=== PATIENT | male | born 1990 ===

== ENCOUNTER 2019-09-19 01:27 | Emergency (ER) | payer SELFPAY ==
[2019-09-19] MEDS ORDERED: Sodium Chloride 0.9% 1,000 ML IV SCH ×2 (02:00→03:15)
--- NOTE | 2019-09-19 02:01 | EDM.PDOC ---
ED HPI GENERAL MEDICAL PROBLEM - General Chief Complaint: Drug or Alcohol Abuse Stated Complaint: MED CLEARANCE Time Seen by Provider: 09/19/19 01:54 Source of Information: Reports: Police History Limitations: Reports: Intoxication, Language Barrier - History of Present Illness INITIAL COMMENTS - FREE TEXT/NARRATIVE: This is a 29-year-old male. He was pulled over this evening by the [facility] [employer] and was found to be drunk. The patient apparently refused any sort of testing and did the sobriety test and failed. They brought him to the ER for medical clearance. However on the way down to the ER this gentleman went to sleep and they were unable to arouse him. When he arrived to the ER and was placed in the bed a firm sternal rub woke him up and he was able to understand some Jamaican and actually say a few Jamaican words. We started an IV on him to give him fluids and he was somewhat nervous about that but then once the IV was then he laid back down and fell asleep. Patient is maintaining his airway. Again no further history from this patient. ED ROS GENERAL - Review of Systems Review Of Systems: See Below Reason Not Obtained: Unable to obtain due to intoxication and language barrier - Physical Exam Exam: See Below Exam Limited By: Other (Language barrier) General Appearance: No Apparent Distress, Other Eye Exam: Bilateral Eye: Normal Inspection (Bloodshot eyes) Ears: Normal External Exam Nose: Normal Inspection Throat/Mouth: Normal Inspection, Normal Lips, No Airway Compromise Head Exam: Normocephalic Neck: Supple Respiratory/Chest: No Respiratory Distress, Lungs Clear, Normal Breath Sounds Cardiovascular: Regular Rate, Rhythm, No Murmur GI/Abdominal: Soft, Other (Does not appear to grimace or any signs of discomfort on palpation of his abdomen) Neuro Exam (Abbreviated): Other (Patient is lethargic and confused secondary to alcohol intake) Back Exam: Normal Inspection, Full Range of Motion Extremities: Normal Inspection, Normal Range of Motion Psychiatric: Other (Patient has a flat affect and is lethargic) Skin Exam: Warm, Dry Course - Vital Signs Last Recorded V/S: Last Vital Signs Temp 97.6 F 09/19/19 01:40 Pulse 83 09/19/19 01:40 Resp 14 09/19/19 01:40 BP 135/99 H 09/19/19 01:40 Pulse Ox 94 L 09/19/19 01:40 - Orders/Labs/Meds Orders: Active Orders 24 hr Category Date Time Status Sodium Chloride 0.9% [Normal Saline] 1,000 ml Med 09/19/19 02:00 Active IV ASDIRECTED Sodium Chloride 0.9% [Normal Saline] 1,000 ml Med 09/19/19 03:15 Active IV ASDIRECTED Medication Orders Sodium Chloride (Normal Saline) 1,000 mls @ 1,000 mls/hr IV ASDIRECTED ANNELISE Last Admin: 09/19/19 01:59 Dose: 1,000 mls/hr Documented by: ARMANI Sodium Chloride (Normal Saline) 1,000 mls @ 999 mls/hr IV ASDIRECTED ANNELISE Last Admin: 09/19/19 03:05 Dose: 999 mls/hr Documented by: ARMANI Labs: Laboratory Tests 09/19/19 09/19/19 Range/Units 01:45 01:45 WBC 7.50 (4.23-9.07) K/mm3 RBC 5.21 (4.63-6.08) M/mm3 Hgb 15.8 (13.7-17.5) gm/dl Hct 45.2 (40.1-51.0) % MCV 86.8 (79.0-92.2) fl MCH 30.3 (25.7-32.2) pg MCHC 35.0 (32.2-35.5) g/dl RDW Std Deviation 41.4 (35.1-43.9) fL Plt Count 242 (163-337) K/mm3 MPV 9.4 (9.4-12.3) fl Neut % (Auto) 39.0 (34.0-67.9) % Lymph % (Auto) 52.7 (21.8-53.1) % Bucks % (Auto) 7.1 (5.3-12.2) % Eos % (Auto) 0.5 L (0.8-7.0) Baso % (Auto) 0.4 (0.1-1.2) % Neut # (Auto) 2.93 (1.78-5.38) K/mm3 Lymph # (Auto) 3.95 H (1.32-3.57) K/mm3 Bucks # (Auto) 0.53 (0.30-0.82) K/mm3 Eos # (Auto) 0.04 (0.04-0.54) K/mm3 Baso # (Auto) 0.03 (0.01-0.08) K/mm3 Sodium 138 (136-145) mEq/L Potassium 3.9 (3.5-5.1) mEq/L Chloride 105 (98-107) mEq/L Carbon Dioxide 20 L (21-32) mEq/L Anion Gap 16.9 H (5-15) BUN 13 (7-18) mg/dL Creatinine 1.1 (0.7-1.3) mg/dL Est Cr Clr Drug Dosing TNP Estimated GFR (MDRD) > 60 (>60) mL/min BUN/Creatinine Ratio 11.8 L (14-18) Glucose 112 H (74-106) mg/dL Calcium 8.5 (8.5-10.1) mg/dL Total Bilirubin 0.5 (0.2-1.0) mg/dL AST 28 (15-37) U/L ALT 38 (16-63) U/L Alkaline Phosphatase 89 (46-116) U/L Total Protein 8.5 H (6.4-8.2) g/dl Albumin 4.3 (3.4-5.0) g/dl Globulin 4.2 gm/dL Albumin/Globulin Ratio 1.0 (1-2) Ethyl Alcohol 0.23 (0.00) gm% Meds: Medications Generic Name Dose Route Start Last Admin Trade Name Freq PRN Reason Stop Dose Admin Sodium Chloride 1,000 mls @ 1,000 mls/hr 09/19/19 02:00 09/19/19 01:59 Normal Saline IV 1,000 mls/hr ASDIRECTED ANNELISE Administration Sodium Chloride 1,000 mls @ 999 mls/hr 09/19/19 03:15 09/19/19 03:05 Normal Saline IV 999 mls/hr ASDIRECTED ANNELISE Administration - Re-Assessments/Exams Free Text/Narrative Re-Assessment/Exam: 09/19/19 03:26 Patient is beginning to stir but is not yet ready to leave. 09/19/19 04:05 Patient received 2 L of fluid he finally woke up he is able to ambulate to the bathroom and back to the room. I am going to discharge him at this time in the custody of the police. Departure - Departure Time of Disposition: 04:05 Disposition: Home, Self-Care 01 Condition: Fair Clinical Impression: Acute alcohol intoxication Qualifiers: Complication of substance-induced condition: uncomplicated Qualified Code(s): F10.920 - Alcohol use, unspecified with intoxication, uncomplicated - Discharge Information *PRESCRIPTION DRUG MONITORING PROGRAM REVIEWED*: Not Applicable *COPY OF PRESCRIPTION DRUG MONITORING REPORT IN PATIENT [facility]: Not Applicable Instructions: Alcohol Intoxication, [id number] Referrals: PCP,None [Primary Care Provider] - Additional Instructions: I have observed this patient in the ER for 2-1/2 hours, he is now able to ambulate without assistance to the bathroom, he is awake and talking, I do not anticipate a deterioration of his physical condition, he can return to the ER as needed Sepsis Event Note (ED) - Evaluation Sepsis Screening Result: No Definite Risk - Focused Exam Vital Signs: Vital Signs Temp Pulse Resp BP Pulse Ox 09/19/19 01:40 97.6 F 83 14 135/99 H 94 L - My Orders Last 24 Hours: My Active Orders 09/19/19 02:00 Sodium Chloride 0.9% [Normal Saline] 1,000 ml IV ASDIRECTED 09/19/19 03:15 Sodium Chloride 0.9% [Normal Saline] 1,000 ml IV ASDIRECTED - Assessment/Plan Last 24 Hours: My Active Orders 09/19/19 02:00 Sodium Chloride 0.9% [Normal Saline] 1,000 ml IV ASDIRECTED 09/19/19 03:15 Sodium Chloride 0.9% [Normal Saline] 1,000 ml IV ASDIRECTED
== END 2019-09-19 04:18 | disposition home or self-care (01) ==
LOC: JD.ED 01:27
DX: F10.120 Alcohol abuse with intoxication, uncomplicated (principal); Y90.0 Blood alcohol level of less than 20 mg/100 ml
CPT/HCPCS: 36415; 80053; 80307; 85025; 99284; J7030; 99283